=== PATIENT | male | born 1955 | race Caucasian/White ===

== ENCOUNTER 2019-09-15 09:28 | Emergency (ER) | payer OTHER ==
[~2019-09-15] VITALS: Ht 182.9 cm; Wt 100.7 kg
[2019-09-15] MEDS ORDERED: HYDRALAZINE HC100 MG PO (09:40)
[2019-09-15] MEDS ORDERED: TOPROL XL50 M1 PO (09:40)
[2019-09-15] MEDS ORDERED: LIPITOR20 MG PO (09:40)
== END 2019-09-15 14:19 | disposition home or self-care (01) ==
LOC: ER 09:28
DX: R10.31 Right lower quadrant pain (principal); Z20.828 Contact with and (suspected) exposure to other viral communicable diseases